=== PATIENT | male | born 1950 | race Caucasian/White ===

== ENCOUNTER 2021-11-15 20:42 | Emergency (ER) | payer MEDICARE, OTHER ==
[~2021-11-15] VITALS: Ht 172.7 cm; Wt 86.2 kg
[2021-11-15] MEDS ORDERED: AMLO5 PO (21:14)
[2021-11-15] MEDS ORDERED: FOLI1 PO (21:14)
[2021-11-15] MEDS ORDERED: LOSARTAN POTAS100 M1 PO (21:14)
[2021-11-15] MEDS ORDERED: FINA5 PO (21:14)
[2021-11-15] MEDS ORDERED: OLAN5 PO (21:15)
[2021-11-15] MEDS ORDERED: TAMS.4ER PO (21:15)
[2021-11-15] MEDS ORDERED: MEMA5TAB PO (21:15)
[2021-11-15] MEDS ORDERED: MULTI-VITAMIN1 EAC2 PO (21:16)
[2021-11-15] MEDS ORDERED: B-100 COMPLEX100 MG PO (21:16)
[2021-11-15] MEDS ORDERED: MELA3 PO (21:16)
[2021-11-15] MEDS ORDERED: Acetaminophen325 M1 PO (21:18)
== END 2021-11-15 22:45 | disposition home or self-care (01) ==
LOC: ER 20:42
DX: S40.211A Abrasion of right shoulder, initial encounter (principal); F03.90 Unspecified dementia, unspecified severity, without behavioral disturbance, psychotic disturbance, mood disturbance, and anxiety; X58.XXXA Exposure to other specified factors, initial encounter; Z79.899 Other long term (current) drug therapy
CPT/HCPCS: 73030

== ENCOUNTER 2021-12-12 15:34 | Inpatient (IN) | payer MEDICARE, OTHER ==
[~2021-12-12] VITALS: Ht 172.7 cm; Wt 60.3 kg
[~2021-12-12 15:34] MED LIST: AMLO5 PO; Acetaminophen325 M1 PO; B-100 COMPLEX100 MG PO; FINA5 PO; FOLI1 PO; LOSARTAN POTAS100 M1 PO; MELA3 PO; MEMA5TAB PO; MULTI-VITAMIN1 EAC2 PO; OLAN5 PO; TAMS.4ER PO
[2021-12-12 16:16] LABS: BASOPHILS ABSOLUTE AUTO 0.02 K/mm3 (0.00-0.23); BASOPHILS PERCENT AUTO 0 % (0-2); Hematocrit 33.1 % (37.0-53.0); Hemoglobin 10.5 g/dL (13.5-17.5); LYMPHOCYTES ABSOLUTE AUTO 0.96 K/mm3 (0.84-5.20); LYMPHOCYTES PERCENT AUTO 12 % (21-46); MONOCYTES ABSOLUTE AUTO 0.72 K/mm3 (0.16-1.47); MONOCYTES PERCENT AUTO 9 % (4-13); Mean Corpuscular HGB 29.2 pg (26.0-34.0); Mean Corpuscular HGB Conc 31.7 g/dL (31.5-36.5); Mean Corpuscular Volume 92 fL (80-100); Mean Platelet Volume 11.1 fL (9.1-12.4); Platelet Count 150 K/mm3 (150-400); RDW Coefficient Variation 14.5 % (11.7-14.2); RDW Standard Deviation 49.3 fL (35.1-46.3); Red Blood Cell Count 3.59 M/mm3 (4.30-5.90); White Blood Cell Count 8.12 K/mm3 (4.00-11.30)
[2021-12-12 16:26] LABS: Source, Urine Straight Cath
[2021-12-12 16:31] LABS: Appearance, Urine Hazy (Clear); Blood, Urine 2+ (Neg); Color, Urine Amber (P-Yellow); Glucose Qualitative, Urine Neg (Neg); Ketones, Urine Neg (Neg); Leukocyte Esterase, Urine 3+ (Neg); Nitrite, Urine Neg (Neg); Protein, Urine 2+ (Neg); Specific Gravity, Urine 1.015 (1.003-1.022); Urobilinogen, Urine 3+ (Normal)
[2021-12-12 16:34] LABS: EOSINOPHILS PERCENT AUTO 0 % (0-6); IMMATURE GRAN ABSOLUTE AUTO 0.04 K/mm3 (0.00-0.10); IMMATURE GRAN PERCENT AUTO 1 % (0-1); NEUTROPHILS ABSOLUTE AUTO 6.38 K/mm3 (1.96-9.15); NEUTROPHILS PERCENT AUTO 79 % (41-73)
[2021-12-12 16:53] LABS: Albumin, Blood 1.9 g/dL (3.4-5.0); Albumin/Globulin Ratio 0.4 (0.8-1.8); Bilirubin, Total 1.2 mg/dL (0.1-1.0); Calcium, Blood 8.4 mg/dL (8.5-10.1); Creatinine, Blood 1.24 mg/dL (0.60-1.20); Globulin, Blood 4.7 g/dL (2.2-4.0); Potassium, Blood 3.5 mmol/L (3.5-5.5); Total Protein, Blood 6.6 g/dL (6.4-8.2)
[2021-12-12 17:03] LABS: Bilirubin, Urine 1+ (Neg)
[2021-12-12 17:06] LABS: Bacteria Many /hpf; Mucus Light (0-Heavy); Renal Epithelial Rare /hpf (0-Rare); Transitional Epithelial Cells Few /hpf (0-Rare); White Blood Cells, Urine 25-50 /hpf (0-5)
[2021-12-12 17:07] LABS: Hyaline Casts 0-2 /lpf (0-2); Squamous Epithelial Cells Rare /hpf (Few)
[2021-12-12] MEDS ORDERED: FAMO20 PO (22:48)
[2021-12-12] MEDS ORDERED: LOPE2C PO (22:51)
[2021-12-12] MEDS ORDERED: DULCOLAX400 MG/5 M PO (22:54)
[2021-12-12] MEDS ORDERED: SENN187 PO (22:55)
[2021-12-12] MEDS ORDERED: NYSTRIT TOP (22:56)
[2021-12-12] MEDS ORDERED: BISA10S PR (22:57)
[2021-12-12] MEDS ORDERED: Calcium Carbon500 MG PO (23:00)
[2021-12-12] MEDS ORDERED: [UNRECOGNIZED DRUG - OTHER] TOP (23:11)
[2021-12-12] MEDS ORDERED: Voltaren100 GM TOP (23:12)
[2021-12-13 05:09] LABS: BASOPHILS ABSOLUTE AUTO 0.04 K/mm3 (0.00-0.23); BASOPHILS PERCENT AUTO 1 % (0-2); EOSINOPHILS ABSOLUTE AUTO 0.11 K/mm3 (0.00-0.68); EOSINOPHILS PERCENT AUTO 1 % (0-6); Hematocrit 38.5 % (37.0-53.0); IMMATURE GRAN ABSOLUTE AUTO 0.06 K/mm3 (0.00-0.10); IMMATURE GRAN PERCENT AUTO 1 % (0-1); LYMPHOCYTES ABSOLUTE AUTO 1.53 K/mm3 (0.84-5.20); LYMPHOCYTES PERCENT AUTO 19 % (21-46); MONOCYTES ABSOLUTE AUTO 0.84 K/mm3 (0.16-1.47); MONOCYTES PERCENT AUTO 10 % (4-13); Mean Corpuscular HGB Conc 31.2 g/dL (31.5-36.5); Mean Corpuscular Volume 93 fL (80-100); Mean Platelet Volume 10.9 fL (9.1-12.4); NEUTROPHILS PERCENT AUTO 69 % (41-73); Platelet Count 140 K/mm3 (150-400); RDW Coefficient Variation 14.4 % (11.7-14.2); RDW Standard Deviation 49.6 fL (35.1-46.3); Red Blood Cell Count 4.14 M/mm3 (4.30-5.90); White Blood Cell Count 8.28 K/mm3 (4.00-11.30)
[2021-12-13 05:29] LABS: Albumin, Blood 2.1 g/dL (3.4-5.0); Albumin/Globulin Ratio 0.4 (0.8-1.8); Bilirubin, Total 0.9 mg/dL (0.1-1.0); Bun/Creatinine Ratio 48.7 (12.0-20.0); Calcium, Blood 8.7 mg/dL (8.5-10.1); Creatinine, Blood 0.94 mg/dL (0.60-1.20); Globulin, Blood 5.1 g/dL (2.2-4.0); Potassium, Blood 3.4 mmol/L (3.5-5.5); Total Protein, Blood 7.2 g/dL (6.4-8.2)
--- NOTE | 2021-12-13 06:32 | NUR ---
SHIFT SUMMARY PATIENT ALERT AND ORIENTED TO SELF. IS MOSTLY NONVERBAL, SPEAKS IN A WHISPER IN SHORT SENTENCES ONLY. SHOWED NO SIGNS OF PAIN OR SHORTNESS OF BREATH. NO ACUTE ISSUES NOTED OVERNIGHT. CALL LIGHT WITHIN REACH. REPORT GIVEN TO ONCOMING RN.
--- NOTE | 2021-12-13 15:20 | NUR ---
Initial Pal Care visit. EMR reviewed and case conferenced on current status and assessment with RN and STONECUTTER ASSISTANT caring for Chucky. Pt is in sidelying position with hob elevated. 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 STONECUTTER ASSISTANT states he attempts to hit with change of position and it sounds like he is demonstrating nonverbal indicators of pain, grunting, groaning, grimacing at this time. Pt says hello and opened his eyes, in response to me saying hello. He did not verbalize anything else. Pt is nonambulatory and requires total care for ADL's and feeding. His PPS score is 10-20% and KPS score is 20%. Pt meets hospice criteria for EOL care for dx of ES dementia and protein calorie malnutrition. His Albumin is 2.1. FAST scale is 7d. Pt able to swallow and takes sips of fluids when offered. Total assist to sip safely is required per staff. T/c to [facility]. They do not have a POLST on file. They have Geri Odonnell listed as NOK. Call to Geri [phone], who confirms that she is pt's only proxy/NOK contact. She cared for Chucky in her [facility] in [place] previously. When Chucky's care needs exceeded her licensure Chucky was transferred to [facility] and she would like Chucky to be able to return to [facility] with hospice support on d/c. She requests comfort care measures be initiated now. Both Geri and staff person, EDUARDO, at [facility] updated on current status. T/c to with report on my visit and above info. VO obtained for comfort care and hospice referral. I consulted with pharmacy due to pt's codeine allergy and they recommended using roxicodone concentrate over Roxinol concentrate. Comfort care order set entered per VO. IV antibiotics for sepsis, UTI to continue as long as pt has a patent periph IV site. IV would not be restarted per comfort care plan of care. PC to visit t/o hospital stay for s/s assessment and management.
--- NOTE | 2021-12-13 17:03 | NUR ---
PT PULLED OUT IV. IV ABX DISCONTINUED PER NOTE REGARDING COMFORT CARE
--- NOTE | 2021-12-14 04:55 | NUR ---
AT 0230, REPORT RECEIVED FROM KAYLEIGH ROMERO ABOUT PT. PT ON COMFORT CARE. PRN ROXANOL GIVEN FOR PAIN PER EMAR. NO IV ACCESS. PT ON O2 @3LPM VIA NC. REPOSITIONED HOURLY. BED BAD GIVEN. TWO MEPILEX C/D/I DRESSINGS: 1) R) HIP & R) SHOULDER. REDNESS, BLANCHING L) HIP. CLEAR LIQUID DIET; PILLS WHOLE WITH CARE. ORAL CARE PROVIDED. INCONTINENT OF BOWEL.
--- NOTE | 2021-12-15 01:27 | NUR ---
HAS BEEN REPOSITIONED FOR COMDORT, O2 PER NC. CALL LIGHT IN REACH. INTERMITTENT STAFF IN ROOM ASSESSMENTS
--- NOTE | 2021-12-15 05:14 | NUR ---
PAUNCH TRIMMER SUMMARY REMAINS ON COMFORT CARE. REPOSIIONED THROUGHOUT SHIFT, BUT REPOSITIONING SEEMED TO CAUSE SOME DISCOMFORT. SEE MAR FOR DETAILS OF ANALGESIC GIVEN. O2 PER NC. CALL LIGHT IN REACH. HERNANDEZ DRAINING DARK.
--- NOTE | 2021-12-15 10:18 | NUR ---
PATIENT REPOSITIONED, BED BATH GIVEN AND GOWN CHANGED. PAINFUL WITH REPOSITIONING, MEDICATED WITH 10MG ROXICODONE. ORAL CARE COMPLETED.
--- NOTE | 2021-12-15 11:19 | NUR ---
ORAL CARE COMPLETED. PATIENT MEDICATED WITH ROXICODONE AND ATIVAN TO TREAT SYMPTOMS. REPOSIIONED TO L SIDE. PATIENT VERY UNCOMFORTABLE TO RIGHT SIDE DUE TO CONTRACTURES.
--- NOTE | 2021-12-15 17:00 | NUR ---
ORAL CARE COMPLETED. ATTENDS CHECK AND REMAIN DRY, DRESSINGS C/D/I
--- NOTE | 2021-12-15 18:36 | NUR ---
PATIENT REPOSITIONED, ORAL CARE COMPLETED. MEDICATED WITH ATIVAN AND ROXICODONE FOR ANXIETY/PAIN. PATIENT VERY PAINFUL WITH REPOSITIONING.
--- NOTE | 2021-12-16 04:00 | NUR ---
SHIFT SUMMARY PT ON COMFORT CARE. PT HAS PAIN WHEN MOVED, SO IS MEDICATED WITH PAIN MEDICATIONS AT THAT TIME PER EMAR.
[2021-12-16] MEDS ORDERED: HALO2 PO (13:03)
[2021-12-16] MEDS ORDERED: ATROPINE SULFATE2 M1 SL (13:03)
[2021-12-16] MEDS ORDERED: TRANSDERM-SCOP1 EA10 TD (13:04)
[2021-12-16] MEDS ORDERED: Ativan1 MG PO (13:04)
[2021-12-16] MEDS ORDERED: PROM12.5S PR (13:05)
[2021-12-16] MEDS ORDERED: OXYC1L SL (13:07)
--- NOTE | 2021-12-16 15:09 | NUR ---
DC TO SNF PT TO BILL SEE VIA [facility]. ALL PERSONAL BELONGINGS SENT WITH PT. DC PACKET GIVEN TO AMBULANCE PERSONNAL.
== END 2021-12-16 15:08 | disposition hospice, home (50) | DRG 871 ==
LOC: ER 15:34 → MEDS 20:46 → ENPENDDIS 12-16 14:36 → MEDS 12-16 15:08
PROVIDERS: Emergency Medicine; ADMIT Internal Medicine
DX: A41.51 Sepsis due to Escherichia coli [E. coli] (principal); G92.8 Other toxic encephalopathy; N39.0 Urinary tract infection, site not specified; E87.0 Hyperosmolality and hypernatremia; E87.2 Acidosis; R65.20 Severe sepsis without septic shock; Z51.5 Encounter for palliative care; Z66 Do not resuscitate; F10.20 Alcohol dependence, uncomplicated; E86.0 Dehydration; F03.90 Unspecified dementia, unspecified severity, without behavioral disturbance, psychotic disturbance, mood disturbance, and anxiety; I95.9 Hypotension, unspecified; R74.01 Elevation of levels of liver transaminase levels; N28.9 Disorder of kidney and ureter, unspecified; B19.20 Unspecified viral hepatitis C without hepatic coma; N40.0 Benign prostatic hyperplasia without lower urinary tract symptoms; D69.6 Thrombocytopenia, unspecified; Z96.651 Presence of right artificial knee joint; I69.320 Aphasia following cerebral infarction; I69.392 Facial weakness following cerebral infarction; Z88.5 Allergy status to narcotic agent; Z79.899 Other long term (current) drug therapy
CPT/HCPCS: 36415; 51702; 70450; 71045; 80053; 81001; 83605; 84443; 85025; 87040; 87077; 87086; 87186; 96374-59; 99285-25; A9270; J0696; J1650; J7030; J7070